=== PATIENT | female | born 1970 | race Asian ===

== ENCOUNTER 2021-02-11 15:44 | Emergency (ER) | payer OTHER ==
[~2021-02-11] VITALS: Ht 165.1 cm; Wt 86.2 kg
--- NOTE | 2021-02-11 16:20 | NUR ---
at bedside for assessment
[2021-02-11] MEDS ORDERED: DEXAMETHASONE SOD PHOSPHATE 4 MG INJ IV ONE (16:30)
[2021-02-11] MEDS ORDERED: KETOROLAC TROMETHAMINE 15 MG INJ IVP ONE (16:30)
[2021-02-11] MEDS ORDERED: CLINDAMYCIN PHOSPHATE IV 600 MG in IV DEXTROSE 5% 100 ML IV ONE (16:30)
[2021-02-11] MEDS ORDERED: CLINDAMYCIN PHOSPHATE 600 MG/4 ML VIAL ONE (16:33)
[2021-02-11] MEDS ORDERED: KETOROLAC TROMETHAMINE 15 MG INJ ONE (16:34)
[2021-02-11] MEDS ORDERED: DEXAMETHASONE SOD PHOSPHATE 10 MG INJ ONE (16:34)
--- NOTE | 2021-02-11 16:40 | NUR ---
Patient kept NPO at this time, complaints of neck pain and inability to swallow
[2021-02-11 16:58] LABS: BASOPHILS # (AUTO) 0.1 K/uL (0.0-8.0); BASOPHILS % (AUTO) 0.7 % (0.0-2.0); EOSINOPHILS # (AUTO) 0.1 K/uL (0.0-0.7); EOSINOPHILS % (AUTO) 0.3 % (0.0-7.0); HEMATOCRIT 43.6 % (31.2-41.9); HEMOGLOBIN 14.5 g/dL (10.9-14.3); LYMPHOCYTES # (AUTO) 1.7 K/uL (20.0-40.0); LYMPHOCYTES % (AUTO) 9.7 % (20.5-51.5); MEAN CORPUSCULAR HEMOGLOBIN 29.5 uug (24.7-32.8); MEAN CORPUSCULAR HGB CONC 33 g/dL (32.3-35.6); MEAN CORPUSCULAR VOLUME 88.7 fL (75.5-95.3); MONOCYTES # (AUTO) 0.9 K/uL (2.0-10.0); MONOCYTES % (AUTO) 5.2 % (0.0-11.0); NEUTROPHILS # (AUTO) 14.2 K/uL (1.8-8.9); NEUTROPHILS % (AUTO) 84.1 % (38.5-71.5); PLATELET COUNT (AUTO) 335 K/uL (179-408); RED BLOOD CELL COUNT(AUTO) 4.91 MIL/uL (3.63-4.92); WHITE BLOOD COUNT (AUTO) 16.9 K/uL (3.8-11.8)
[2021-02-11 17:03] LABS: CREATININE 1.3 mg/dL (0.6-1.3)
[2021-02-11 17:09] LABS: BILIRUBIN,DIRECT 0.4 mg/dL (0.0-0.2); BILIRUBIN,TOTAL 1.2 mg/dL (0.2-1.0); TOTAL PROTEIN, SERUM 8.4 g/dL (6.4-8.2)
[2021-02-11] MEDS ORDERED: IV NORMAL SALINE 250 ML IV ONE (17:17)
[2021-02-11] MEDS ORDERED: SWABABLE VALVE TRANSFER SET EA MC ONE (17:17)
[2021-02-11] MEDS ORDERED: IOHEXOL 300MG/ML 100 ML INFUS..BTL ONE (17:17)
--- NOTE | 2021-02-11 18:20 | NUR ---
Per pt will need to be transfered for higher level of care for ENT. ER admitting notified and to call pt's IPA.
--- NOTE | 2021-02-11 18:25 | NUR ---
Spoke with Shoshana from pt's IPA via telephone regarding transfer, requested information provided. Shoshana also spoke with .
--- NOTE | 2021-02-11 18:29 | NUR ---
Pt resting with no s/s of acute distress noted. Per Dr.Herman Anna (from pt's IPA) to call back with further information regarding transfer.
[2021-02-11] MEDS ORDERED: LOSA50TA39 PO (18:31)
--- NOTE | 2021-02-11 18:40 | NUR ---
Per ER admitting Shoshana from pt's IPA called and stated she will attempt to find a facility for HLOC transfer but is also giving us authorization to call and transfer to any facility that we find to accept the patient for transfer.
--- NOTE | 2021-02-11 18:42 | NUR ---
Called [facility] ([phone]) for HLOC transfer, call was transfered to bed control but there was no answer.
--- NOTE | 2021-02-11 18:46 | NUR ---
Called [facility] ([phone]) and spoke with Bandar in bed control who stated their policy is that the pt's IPA has to call them directly regarding transfer.
--- NOTE | 2021-02-11 19:00 | NUR ---
Received report from CATHY Aquino.
[2021-02-11] MEDS ORDERED: IV NORMAL SALINE 1000 ML BAG IV ONE (19:30)
--- NOTE | 2021-02-11 19:55 | NUR ---
Called [facility] at Spoke with Skye and they to fax packet to their hospital but "We are pretty packed right now, we might not be able to take her".
--- NOTE | 2021-02-11 20:00 | NUR ---
Called [facility] at and spoke with ER Nurse, " Patient would have to be transferred ER to ER".
--- NOTE | 2021-02-11 20:20 | NUR ---
Called [facility] at [phone], not available for higher level of care transfers.
--- NOTE | 2021-02-11 23:00 | NUR ---
Patient is resting comfortably in bed with eyes closed.
[2021-02-12] MEDS ORDERED: METRONIDAZOLE 500 MG/NS 100 ML PIGGYBACK IV ONE
[2021-02-12] MEDS ORDERED: CEFTRIAXONE 1 G in IV DEXTROSE 5% 50 ML IV ONE
[2021-02-12] MEDS ORDERED: CEFTRIAXONE /D5W 50ML IVPB **ER PYXIS IV ONE (00:23)
[2021-02-12] MEDS ORDERED: METRONIDAZOLE 500 MG/NS 100ML 100 ML IV ONE (00:23)
--- NOTE | 2021-02-12 01:57 | NUR ---
Spoke with Meggan from [facility]. Meggan will contact her medical clinic manager to attempt to get patient into [facility].
[2021-02-12] MEDS ORDERED: hydrALAZINE HCL 20 MG/1 ML VIAL IV ONE ×2 (02:30→12:15)
[2021-02-12] MEDS ORDERED: hydrALAZINE HCL 20 MG/1 ML VIAL ONE ×2 (02:36→12:15)
--- NOTE | 2021-02-12 03:03 | NUR ---
Patient is resting comfortably in bed with eyes closed.
[2021-02-12] MEDS ORDERED: LABETALOL HCL 100 MG/20 ML VIAL ONE (03:59)
[2021-02-12] MEDS ORDERED: LABETALOL HCL 100 MG/20 ML VIAL IV ONE (04:00)
--- NOTE | 2021-02-12 05:02 | NUR ---
Patient is resting comfortably in bed with eyes closed, at bedside.
--- NOTE | 2021-02-12 06:09 | NUR ---
Spoke with Anusha from [facility] at [phone], faxed over patient's facesheet and summary report to [phone].
--- NOTE | 2021-02-12 06:10 | NUR ---
Called [facility] [employer] transfer center at [phone] attempted top leave message but unable to, faxed over facesheet and summary report at [phone].
--- NOTE | 2021-02-12 07:35 | NUR ---
Patient summary and chart details faxed to [facility]
--- NOTE | 2021-02-12 07:41 | NUR ---
Patient noted resting in bed at this time, no signs of distress noted, noted at bedside
--- NOTE | 2021-02-12 09:26 | NUR ---
[facility] center contacted for update , Angelina states that their doctors are reviewing the case and will call us when they have made a decision Addendum: 02/12/21 at 0936 by MTSAVIDIS [facility] Addendum: 02/12/21 at 0942 by [email or web address] Amendment undone in EDM - 02/12/21 at 0943 by MTSAVIDIS [facility]
--- NOTE | 2021-02-12 09:54 | NUR ---
Spoke with Jovana (case investigator) from [place] , Shoshana ([facility]) information given to Jovana the case investigator
[2021-02-12] MEDS ORDERED: DEXAMETHASONE SOD PHOSPHATE 4 MG INJ IV ONE (10:30)
[2021-02-12] MEDS ORDERED: DEXAMETHASONE SOD PHOSPHATE 10 MG INJ ONE (10:31)
[2021-02-12 12:15] VITALS: BP 165/109
--- NOTE | 2021-02-12 12:15 | NUR ---
Patient noted being picked up by [facility], lima sign sof acute distress noted, Patient being transferred to [facility] as a ER to ER transfer, left AC 20G intact per [facility] request, MD Tam Carmona to resume care , report given to James Ahuja
== END 2021-02-12 12:30 | disposition short-term general hospital (02) ==
LOC: ER 15:49
DX: J39.0 Retropharyngeal and parapharyngeal abscess (principal); M46.02 Spinal enthesopathy, cervical region; R59.0 Localized enlarged lymph nodes; Z20.822 Contact with and (suspected) exposure to COVID-19; R00.0 Tachycardia, unspecified; H61.23 Impacted cerumen, bilateral; I10 Essential (primary) hypertension; Z79.899 Other long term (current) drug therapy
CPT/HCPCS: 36415; 70491; 71045; 80048; 80076; 83605; 84484; 85025; 87040 ×2; 87426; 93005; 96361; 96365; 96366; 96367; 96368; 96375 ×2; 96376; 99291; J0360 ×2; J0696; J1100 ×2; J1885; J3490 ×3; J7060; Q9967; 70030-TC; J7030; J7050

== ENCOUNTER 2024-10-27 19:28 | Emergency (ER) | payer MEDICAID, OTHER ==
[~2024-10-27] VITALS: Ht 165.1 cm; Wt 86.2 kg
[~2024-10-27 19:28] MED LIST: LOSA50TA39 PO
[2024-10-27] MEDS ORDERED: CYCL10TA9 PO (21:18)
[2024-10-27] MEDS ORDERED: HYDR-4209 PO (21:18)
[2024-10-27] MEDS ORDERED: IBUP-1490 PO (21:18)
[2024-10-27] MEDS ORDERED: CYCLOBENZAPRINE HCL 10 MG TABLET ONE (21:23)
[2024-10-27] MEDS ORDERED: IBUPROFEN 600 MG TABLET ONE (21:24)
[2024-10-27] MEDS: HYDROCODONE/APAP 5-325MG TABLET PO ONE (21:25)
[2024-10-27] MEDS: IBUPROFEN 600 MG TABLET PO ONE (21:25)
[2024-10-27] MEDS: CYCLOBENZAPRINE HCL 10 MG TABLET PO ONE (21:25)
[2024-10-27 21:52] VITALS: BP 144/88; TEMP 97.8; O2SAT 99
== END 2024-10-27 21:52 | disposition home or self-care (01) ==
LOC: ER 19:28
DX: S39.012A Strain of muscle, fascia and tendon of lower back, initial encounter (principal); S16.1XXA Strain of muscle, fascia and tendon at neck level, initial encounter; V43.52XA Car driver injured in collision with other type car in traffic accident, initial encounter; Z79.899 Other long term (current) drug therapy; Y93.89 Activity, other specified; Y92.89 Other specified places as the place of occurrence of the external cause; Y99.8 Other external cause status
CPT/HCPCS: A4606; A4663